=== PATIENT | male | born 1955 | race Caucasian/White ===

== ENCOUNTER 2023-02-01 02:16 | Observation (INO) | payer OTHER ==
[2023-02-01] MEDS ORDERED: Acetaminophen 325 MG TAB PO PRN (05:09)
[2023-02-01] MEDS ORDERED: Ondansetron ODT 4 MG TAB PO PRN (05:09)
[2023-02-01] MEDS ORDERED: Senokot S 8.6-50 MG TAB PO PRN (05:09)
[2023-02-01] MEDS ORDERED: Ketorolac Tromethamine 30 MG/ML VIAL IVP SCH (05:45)
[2023-02-01] MEDS ORDERED: Lactated Ringer's 500 ML IV SCH (05:45)
[2023-02-01 05:58] LABS: #Eosinphils 0.2 thou/uL (0.0-0.7); #Monocytes 0.6 thou/uL (0.11-0.59); #Neutrophils 3.3 thou/uL (1.40-6.50); %Basophils 0.7 % (0.0-1.0); %Lymphocytes 23.1 % (21.0-51.0); Hematocrit 36.2 % (42.0-52.0); Hemoglobin 11.9 g/dL (14.0-18.0); Mean Corpuscular HGB CONC 32.9 g/dL (32.0-36.0); Mean Corpuscular Hemoglobin 29.3 pg (27.0-31.0); Mean Corpuscular Volume 89.2 fl (78.0-98.0); Mean Platelet Volume 10.4 fL (7.4-10.4); Platelet Count 109 10x3/uL (130-400); RBC Distribution Width 21.5 % (11.5-14.5); Red Blood Cell (RBC) Count 4.06 mill/uL (4.70-6.10); White Blood Cell (WBC) Count 5.4 10x3/uL (4.8-10.8)
[2023-02-01 06:09] LABS: Hemoglobin A1c 4.6 % (4.0-6.0)
[2023-02-01 06:23] LABS: Anion Gap 13 mmol/L (10-20); BUN (Urea Nitrogen) 20 mg/dL (8.4-25.7); Calc. Creatinine Clearance 0 mL/min (70-130); Calcium 9.3 mg/dL (7.8-10.44); Carbon Dioxide 24 mmol/L (23-31); Chloride 102 mmol/L (98-107); Estimated GFR 75; Glucose 79 mg/dL (80-115); Potassium 4.5 mmol/L (3.5-5.1); Sodium 134 mmol/L (136-145)
[2023-02-01 06:29] LABS: Troponin I 0.012 ng/mL (< 0.028)
[2023-02-01 06:40] VITALS: BMI 27.0
[2023-02-01] MEDS ORDERED: Ferrous Sulfate 325 MG TAB PO SCH (08:00)
[2023-02-01] MEDS ORDERED: Cetirizine HCl 10 MG TAB PO SCH (09:00)
[2023-02-01] MEDS ORDERED: Calcium Carbonate 600 MG + Vit D TAB PO SCH (09:00)
[2023-02-01] MEDS ORDERED: Non-Formulary Item 1 EACH (Ferrous Sulfate [Ferrous Sulfate] 325 MG Tab) PO SCH (09:00)
[2023-02-01] MEDS ORDERED: FLUTICASONE PROPIONATE 110 MCG INH SCH (09:00)
[2023-02-01] MEDS ORDERED: Lisinopril 5 MG TAB PO SCH (09:00)
[2023-02-01] MEDS ORDERED: Spironolactone 25 MG TAB PO SCH (09:00)
[2023-02-01] MEDS ORDERED: Empagliflozin 10 MG TAB PO SCH (09:00)
[2023-02-01] MEDS ORDERED: Famotidine 20 MG TAB PO SCH (09:00)
[2023-02-01] MEDS ORDERED: DULoxetine 60 MG CAP PO SCH (09:00)
[2023-02-01] MEDS ORDERED: Carvedilol 6.25 MG TAB PO SCH (09:00)
[2023-02-01] MEDS ORDERED: Loratadine 10 MG TAB PO SCH (09:00)
[2023-02-01] MEDS: Aspirin 81 mg Enteric Coated Tablet PO SCH ×2 (09:34→11:45)
[2023-02-01] MEDS: Clopidogrel Bisulfate 75 MG TAB PO SCH ×2 (09:46→11:45)
[2023-02-01] MEDS ORDERED: Acetaminophen 500 MG TAB PO SCH (10:30)
[2023-02-01 12:22] VITALS: BP 99/57; TEMP 97
[2023-02-01] MEDS ORDERED: Mometasone 100 MCG/PUFF (1 INHALER) INH SCH (18:30)
[2023-02-01] MEDS ORDERED: Atorvastatin Calcium 40 MG TAB PO SCH (21:00)
== END 2023-02-01 16:20 ==
LOC: 2SE 02:16
PROVIDERS: ADMIT Student in an Organized Health Care Education/Training Program; ATTEND Internal Medicine
DX: R07.2 Precordial pain (principal); I50.22 Chronic systolic (congestive) heart failure; I11.0 Hypertensive heart disease with heart failure; I48.91 Unspecified atrial fibrillation; I25.10 Atherosclerotic heart disease of native coronary artery without angina pectoris; J44.9 Chronic obstructive pulmonary disease, unspecified; M54.9 Dorsalgia, unspecified; G89.29 Other chronic pain; E11.9 Type 2 diabetes mellitus without complications; E87.1 Hypo-osmolality and hyponatremia; D63.8 Anemia in other chronic diseases classified elsewhere; Z88.1 Allergy status to other antibiotic agents; Z79.899 Other long term (current) drug therapy
CPT/HCPCS: 36415; 80048; 83036; 85025; G0378